=== PATIENT | male | born 1990 | race Two or more races ===

== ENCOUNTER 2021-12-12 07:42 | Emergency (ER) | payer MEDICAID, OTHER ==
[~2021-12-12] VITALS: Ht 172.7 cm; Wt 68.9 kg
[2021-12-12] MEDS ORDERED: LORAZEPAM INJ 2 MG/ML VIAL ONE (08:11)
[2021-12-12] MEDS ORDERED: ONDANSETRON HCL/PF 4 MG/2 ML VIAL ONE (08:11)
[2021-12-12] MEDS ORDERED: IV NS 0.9% 1,000 ML IV ONE (08:30)
[2021-12-12] MEDS ORDERED: LORAZEPAM INJ 2 MG/ML VIAL IV ONE (08:30)
[2021-12-12] MEDS ORDERED: ONDANSETRON HCL/PF 4 MG/2 ML VIAL IV ONE (08:30)
--- NOTE | 2021-12-12 08:30 | NUR ---
urine collected and sent to the lab
--- NOTE | 2021-12-12 11:45 | NUR ---
IV removed. Catheter intact and site benign. Pressure and 4x4 applied to site. No bleeding noted.Patient discharged to home in stable condition. Written and verbal after care instructions given. Patient verbalizes understanding of instruction.
[2021-12-12 11:46] VITALS: BP 126/82
== END 2021-12-12 11:46 | disposition home or self-care (01) ==
LOC: ER 07:46
DX: T40.5X1A Poisoning by cocaine, accidental (unintentional), initial encounter (principal); R00.2 Palpitations; F14.129 Cocaine abuse with intoxication, unspecified; Y92.89 Other specified places as the place of occurrence of the external cause
CPT/HCPCS: 99284; 96374; 96361; 96375; 80307; J2060; J2405; J7030